=== PATIENT | female | born 1935 | race African-American/Black ===

== ENCOUNTER 2018-12-10 18:26 | Emergency (ER) | payer MEDICARE ==
[~2018-12-10] VITALS: Ht 165.1 cm; Wt 77.1 kg
[~2018-12-10 18:26] MED LIST: ASPI-1718 PO; LOVA20TA8 PO; OMEP-113 PO; VIC PO
[2018-12-10 18:31] VITALS: BP 149/82
[2018-12-10] MEDS ORDERED: NACL 0.9% 500 ML IV SCH (18:41)
--- NOTE | 2018-12-10 18:45 | NUR ---
82f bib self with c/o intermittent hypertension x today. During triage, in=667/92. Patient denies any cp or sob. Pt is aaox4 to person, place, time, and situation. RR are even and unlabored. Abd is soft and non tender. 3+ edema to bl lower legs. NAD. Will continue to monitor.
--- NOTE | 2018-12-10 19:10 | NUR ---
Pt report given to Fouzia VAUGHAN. Transfer of care at this time.
--- NOTE | 2018-12-10 19:54 | NUR ---
Dr. Friedman evaluating patient at bedside.
[2018-12-10] MEDS ORDERED: ENALAPRILAT 2.5 MG/2 ML VIAL IVP ONE (20:40)
[2018-12-10 20:49] LABS: BASOPHILS # (AUTO) 0.1 K/uL (0.00-0.22); BASOPHILS % (AUTO) 1.2 % (0.0-2.0); EOSINOPHILS # (AUTO) 0.1 K/uL (0-0.4); EOSINOPHILS % (AUTO) 2.6 % (0.0-4.0); HEMATOCRIT 40.6 % (36-48); HEMOGLOBIN 13.5 g/dL (12.0-16.0); LYMPHOCYTES # (AUTO) 1.8 K/uL (2.5-16.5); LYMPHOCYTES % (AUTO) 30.4 % (20.5-51.1); MEAN CORPUSCULAR HEMOGLOBIN 30 pg (27-31); MEAN CORPUSCULAR HGB CONC 33 g/dL (33-37); MEAN CORPUSCULAR VOLUME 89.1 fL (80-94); MONOCYTES # (AUTO) 0.3 K/uL (0.8-1.0); MONOCYTES % (AUTO) 5.1 % (1.7-9.3); NEUTROPHILS # (AUTO) 3.6 K/uL (1.8-7.7); NEUTROPHILS % (AUTO) 60.7 % (42.2-75.2); PLATELET COUNT (AUTO) 310 K/uL (140-450); RED BLOOD CELL COUNT(AUTO) 4.56 MIL/uL (4.20-5.40); RED CELL DISTRIBUTION WIDTH 13.3 % (11.6-13.7); WHITE BLOOD COUNT (AUTO) 5.9 K/uL (4.8-10.8)
[2018-12-10 21:06] LABS: ALBUMIN 4.3 g/dL (3.4-5.0); ANION GAP 10.7 (8-16); ASPARTATE AMINOTRANSFERASE 17 U/L (15-37); CARBON DIOXIDE 28.6 mmol/L (21-32); CHLORIDE 105 mmol/L (98-107); CREATININE 1.1 mg/dL (0.6-1.3); GLUCOSE 86 mg/dL (74-106); POTASSIUM 4.3 mmol/L (3.5-5.1); SODIUM SERUM 140 mmol/L (136-145); TOTAL BILIRUBIN 0.5 mg/dL (0.0-1.0); UREA NITROGEN, BLOOD 17 mg/dL (7-18)
[2018-12-10 22:31] VITALS: BP 156/72
--- NOTE | 2018-12-10 22:31 | NUR ---
Patient discharged with v/s stable. Written and verbal after care instructions given and explained. Patient verbalized understanding. Ambulatory with steady gait. All questions addressed prior to discharge. Advised to follow up with PMD.
== END 2018-12-10 22:31 | disposition home or self-care (01) ==
LOC: MED 18:26
DX: I10 Essential (primary) hypertension (principal); J44.9 Chronic obstructive pulmonary disease, unspecified; I71.9 Aortic aneurysm of unspecified site, without rupture; Z88.8 Allergy status to other drugs, medicaments and biological substances; Z79.82 Long term (current) use of aspirin; Z79.899 Other long term (current) drug therapy; Z79.1 Long term (current) use of non-steroidal anti-inflammatories (NSAID); Z98.890 Other specified postprocedural states
CPT/HCPCS: 36415; 71045; 80053; 81002; 83880; 84484; 85025; 93005; 96374; 99284; J3490; Q0092

== ENCOUNTER 2021-12-28 15:52 | Emergency (ER) | payer MEDICARE ==
[~2021-12-28] VITALS: Ht 165.1 cm; Wt 62.1 kg
[~2021-12-28 15:52] MED LIST changes: -ASPI-1718 PO; +ASPI-1822 PO; -OMEP-113 PO; +OMEP-283 PO
[2021-12-28 15:59] VITALS: BP 140/73
[2021-12-28] MEDS ORDERED: MORPHINE SULFATE 4 MG/ML SYR IM ONE (16:10)
[2021-12-28] MEDS ORDERED: ONDANSETRON 4 MG ODT PO ONE (16:10)
[2021-12-28] MEDS ORDERED: KETOROLAC 30 MG/ML VIAL IM ONE (17:15)
[2021-12-28] MEDS ORDERED: ACETAMINOPHEN 325 MG TAB PO ONE (17:15)
[2021-12-28] MEDS ORDERED: LID5T TP (18:17)
[2021-12-28] MEDS ORDERED: GABA300C PO (18:17)
[2021-12-28 18:44] VITALS: BP 155/66
== END 2021-12-28 18:44 | disposition home or self-care (01) ==
LOC: MED 15:52
DX: M54.41 Lumbago with sciatica, right side (principal); J44.9 Chronic obstructive pulmonary disease, unspecified; I10 Essential (primary) hypertension; Z79.899 Other long term (current) drug therapy; Z79.82 Long term (current) use of aspirin; Z98.890 Other specified postprocedural states
CPT/HCPCS: 72131; 96372; 99284; J1885; J2270; Q0162

== ENCOUNTER 2022-03-16 17:39 | Emergency (ER) | payer MEDICARE ==
[~2022-03-16] VITALS: Ht 165.1 cm; Wt 67.8 kg
[2022-03-16 17:39] VITALS: BP 130/74
[~2022-03-16 17:39] MED LIST changes: +GABA300C PO; +LID5T TP
--- NOTE | 2022-03-16 17:56 | NUR ---
LAB AT BEDSIDE
[2022-03-16 18:07] LABS: BASOPHILS # (AUTO) 0.2 K/uL (0.00-0.22); BASOPHILS % (AUTO) 3.9 % (0.0-2.0); EOSINOPHILS # (AUTO) 0.2 K/uL (0-0.4); EOSINOPHILS % (AUTO) 4.6 % (0.0-4.0); HEMATOCRIT 38.1 % (36-48); HEMOGLOBIN 12.6 g/dL (12.0-16.0); LYMPHOCYTES # (AUTO) 1.2 K/uL (2.5-16.5); LYMPHOCYTES % (AUTO) 23.1 % (20.5-51.1); MEAN CORPUSCULAR HEMOGLOBIN 29 pg (27-31); MEAN CORPUSCULAR HGB CONC 33 g/dL (33-37); MEAN CORPUSCULAR VOLUME 88.1 fL (80-94); MONOCYTES # (AUTO) 0.3 K/uL (0.8-1.0); NEUTROPHILS # (AUTO) 3.4 K/uL (1.8-7.7); NEUTROPHILS % (AUTO) 63.4 % (42.2-75.2); PLATELET COUNT (AUTO) 329 K/uL (140-450); RED BLOOD CELL COUNT(AUTO) 4.32 MIL/uL (4.20-5.40); RED CELL DISTRIBUTION WIDTH 13.5 % (11.6-13.7); WHITE BLOOD COUNT (AUTO) 5.4 K/uL (4.8-10.8)
[2022-03-16 18:21] LABS: ALBUMIN 3.9 g/dL (3.4-5.0); ANION GAP 11.7 (8-16); ASPARTATE AMINOTRANSFERASE 16 U/L (15-37); CARBON DIOXIDE 30.3 mmol/L (21-32); CHLORIDE 102 mmol/L (98-107); CREATININE 1.1 mg/dL (0.6-1.3); GLUCOSE 92 mg/dL (74-106); SODIUM SERUM 140 mmol/L (136-145); TOTAL BILIRUBIN 0.5 mg/dL (0.0-1.0); UREA NITROGEN, BLOOD 18 mg/dL (7-18)
--- NOTE | 2022-03-16 19:19 | NUR ---
REPORT GIVEN TO ALEXUS SOLIMAN . TRANSFER OF CARE
--- NOTE | 2022-03-16 19:45 | NUR ---
PT MADE AWARE THAT LAB RESULTS ARE STILL PENDING
--- NOTE | 2022-03-16 19:51 | NUR ---
Provided pt with juice upon request
[2022-03-16] MEDS ORDERED: IBUP-2213 PO (21:11)
[2022-03-16 21:41] VITALS: BP 138/76
== END 2022-03-16 21:20 | disposition home or self-care (01) ==
LOC: MED 17:39
DX: R07.9 Chest pain, unspecified (principal); J44.9 Chronic obstructive pulmonary disease, unspecified; Z98.890 Other specified postprocedural states; Z79.1 Long term (current) use of non-steroidal anti-inflammatories (NSAID); Z79.899 Other long term (current) drug therapy; Z79.82 Long term (current) use of aspirin; Z79.891 Long term (current) use of opiate analgesic; Z88.8 Allergy status to other drugs, medicaments and biological substances
CPT/HCPCS: 36415; 71045; 80053; 83880; 84484; 85025; 93005; 99285; Q0092

== ENCOUNTER 2022-07-11 14:15 | Emergency (ER) | payer MEDICARE ==
[~2022-07-11] VITALS: Ht 162.6 cm; Wt 70.3 kg
[~2022-07-11 14:15] MED LIST changes: +IBUP-2213 PO
[2022-07-11 14:28] VITALS: BP 134/65
--- NOTE | 2022-07-11 14:35 | NUR ---
PT SENT FROM C/C ABNORMAL EKG. PT REPORTS HAVING X1 EPISODE OF PALPITATION 3 DAYS AGO. PT DENIES CP OR SOB. PENDING ER MD GARCÍA.
[2022-07-11 15:41] LABS: BASOPHILS % (AUTO) 1.1 % (0.0-2.0); EOSINOPHILS # (AUTO) 0.2 K/uL (0-0.4); EOSINOPHILS % (AUTO) 3.6 % (0.0-4.0); HEMATOCRIT 34.6 % (36-48); HEMOGLOBIN 11.5 g/dL (12.0-16.0); LYMPHOCYTES # (AUTO) 1.3 K/uL (2.5-16.5); LYMPHOCYTES % (AUTO) 28.1 % (20.5-51.1); MEAN CORPUSCULAR HEMOGLOBIN 30 pg (27-31); MEAN CORPUSCULAR HGB CONC 33 g/dL (33-37); MEAN CORPUSCULAR VOLUME 89.7 fL (80-94); MONOCYTES # (AUTO) 0.2 K/uL (0.8-1.0); MONOCYTES % (AUTO) 4.8 % (1.7-9.3); NEUTROPHILS # (AUTO) 2.9 K/uL (1.8-7.7); NEUTROPHILS % (AUTO) 62.4 % (42.2-75.2); PLATELET COUNT (AUTO) 265 K/uL (140-450); RED BLOOD CELL COUNT(AUTO) 3.85 MIL/uL (4.20-5.40); RED CELL DISTRIBUTION WIDTH 13.3 % (11.6-13.7); WHITE BLOOD COUNT (AUTO) 4.6 K/uL (4.8-10.8)
[2022-07-11 15:59] LABS: ALBUMIN 3.3 g/dL (3.4-5.0); ANION GAP 11.3 (8-16); ASPARTATE AMINOTRANSFERASE 13 U/L (15-37); CARBON DIOXIDE 25.8 mmol/L (21-32); CHLORIDE 107 mmol/L (98-107); CREATININE 0.9 mg/dL (0.6-1.3); GLUCOSE 98 mg/dL (74-106); POTASSIUM 4.1 mmol/L (3.5-5.1); SODIUM SERUM 140 mmol/L (136-145); TOTAL BILIRUBIN 0.4 mg/dL (0.0-1.0); UREA NITROGEN, BLOOD 16 mg/dL (7-18)
[2022-07-11 16:45] VITALS: BP 145/70
--- NOTE | 2022-07-11 17:02 | NUR ---
Patient does not wish to proceed with medical care recommended by WILLIAM. Patient given information related to possible complications, up to and including , which could occur as a result of leaving hospital at this time. Patient verbalizes understanding of risks involved leaving against medical advice. Patient has signed AMA form.
== END 2022-07-11 17:02 | disposition left against medical advice (07) ==
LOC: MED 14:15
DX: R00.2 Palpitations (principal); I49.1 Atrial premature depolarization; J44.9 Chronic obstructive pulmonary disease, unspecified; I10 Essential (primary) hypertension; Z79.899 Other long term (current) drug therapy; Z79.82 Long term (current) use of aspirin; Z88.8 Allergy status to other drugs, medicaments and biological substances
CPT/HCPCS: 36415; 71045; 80053; 83880; 84484; 85025; 93005; 99285

== ENCOUNTER 2023-01-15 23:05 | Emergency (ER) | payer MEDICARE ==
[~2023-01-15] VITALS: Ht 162.6 cm; Wt 65.8 kg
--- NOTE | 2023-01-15 23:12 | NUR ---
PT [facility] ER BED 12
[2023-01-15 23:17] VITALS: BP 154/53
--- NOTE | 2023-01-15 23:25 | NUR ---
Patient resting in bed, A/Ox4, chest rise and fall symmetrical, no c/o pain or s/s of distress, patient on monitor.
[2023-01-16 00:27] LABS: BASOPHILS % (AUTO) 0.7 % (0.0-2.0); EOSINOPHILS # (AUTO) 0.1 K/uL (0-0.4); EOSINOPHILS % (AUTO) 0.9 % (0.0-4.0); HEMATOCRIT 37.7 % (36-48); HEMOGLOBIN 12.5 g/dL (12.0-16.0); LYMPHOCYTES # (AUTO) 1.9 K/uL (2.5-16.5); LYMPHOCYTES % (AUTO) 26.3 % (20.5-51.1); MEAN CORPUSCULAR HEMOGLOBIN 29 pg (27-31); MEAN CORPUSCULAR HGB CONC 33 g/dL (33-37); MEAN CORPUSCULAR VOLUME 88.2 fL (80-94); MONOCYTES # (AUTO) 0.6 K/uL (0.8-1.0); MONOCYTES % (AUTO) 8.8 % (1.7-9.3); NEUTROPHILS # (AUTO) 4.5 K/uL (1.8-7.7); NEUTROPHILS % (AUTO) 63.3 % (42.2-75.2); PLATELET COUNT (AUTO) 306 K/uL (140-450); RED BLOOD CELL COUNT(AUTO) 4.28 MIL/uL (4.20-5.40); RED CELL DISTRIBUTION WIDTH 13.3 % (11.6-13.7); WHITE BLOOD COUNT (AUTO) 7.1 K/uL (4.8-10.8)
[2023-01-16 01:07] LABS: ALBUMIN 4.3 g/dL (3.4-5.0); ANION GAP 6.2 (8-16); ASPARTATE AMINOTRANSFERASE 7 U/L (15-37); CARBON DIOXIDE 32.8 mmol/L (21-32); CHLORIDE 102 mmol/L (98-107); CREATININE 0.9 mg/dL (0.6-1.3); GLUCOSE 96 mg/dL (74-106); SODIUM SERUM 137 mmol/L (136-145); THYROID STIMULATING HORMONE 1.08 uIU/mL (0.34-3.74); TOTAL BILIRUBIN 0.6 mg/dL (0.0-1.0); UREA NITROGEN, BLOOD 26 mg/dL (7-18)
[2023-01-16 01:45] VITALS: BP 127/85
--- NOTE | 2023-01-16 01:55 | NUR ---
Patient resting in bed, A/Ox4, chest rise and fall symmetrical, no c/o pain or s/s of distress, patient on monitor.
== END 2023-01-16 02:21 | disposition home or self-care (01) ==
LOC: MED 23:05
DX: I10 Essential (primary) hypertension (principal); R00.2 Palpitations; J44.9 Chronic obstructive pulmonary disease, unspecified; Z88.8 Allergy status to other drugs, medicaments and biological substances; Z79.899 Other long term (current) drug therapy
CPT/HCPCS: 36415; 71045; 80053; 84443; 84484; 85025; 93005; 99285; Q0092

== ENCOUNTER 2023-04-15 21:50 | Inpatient (IN) | payer MEDICARE, OTHER ==
[~2023-04-15] VITALS: Ht 162.6 cm; Wt 64.9 kg
[2023-04-15 21:52] VITALS: BP 167/80; PULSE 103; RESP 23; TEMP 98.1; O2SAT 98
--- NOTE | 2023-04-15 21:57 | NUR ---
PT [facility]. TAKEN TO BED 11
--- NOTE | 2023-04-15 22:22 | NUR ---
X-Ray at bedside.
[2023-04-15 22:23] LABS: BASOPHILS % (AUTO) 0.3 % (0.0-2.0); HEMATOCRIT 38.5 % (36-48); HEMOGLOBIN 13.1 g/dL (12.0-16.0); LYMPHOCYTES # (AUTO) 0.2 K/uL (2.5-16.5); LYMPHOCYTES % (AUTO) 4.6 % (20.5-51.1); MEAN CORPUSCULAR HEMOGLOBIN 30 pg (27-31); MEAN CORPUSCULAR HGB CONC 34 g/dL (33-37); MONOCYTES % (AUTO) 0.3 % (1.7-9.3); NEUTROPHILS # (AUTO) 4.7 K/uL (1.8-7.7); NEUTROPHILS % (AUTO) 94.8 % (42.2-75.2); PLATELET COUNT (AUTO) 275 K/uL (140-450); RED BLOOD CELL COUNT(AUTO) 4.37 MIL/uL (4.20-5.40); RED CELL DISTRIBUTION WIDTH 14.3 % (11.6-13.7)
--- NOTE | 2023-04-15 22:28 | NUR ---
PT AMBULATED TO THE BATHROOM WITH ASSISTANCE. PT HAS PAIN TO BILATERAL KNEES AFTER RECEIVING BILATERAL CORTISONE SHOTS. NEERAJ TAPIA MADE AWARE
[2023-04-15 22:44] LABS: LIPASE 86 U/L (73-393)
[2023-04-15 22:46] LABS: ALBUMIN 3.9 g/dL (3.4-5.0); ANION GAP 16.4 (8-16); ASPARTATE AMINOTRANSFERASE 19 U/L (15-37); CARBON DIOXIDE 23.5 mmol/L (21-32); CHLORIDE 104 mmol/L (98-107); CREATININE 1.2 mg/dL (0.6-1.3); GLUCOSE 229 mg/dL (74-106); POTASSIUM 3.9 mmol/L (3.5-5.1); SODIUM SERUM 140 mmol/L (136-145); TOTAL BILIRUBIN 0.3 mg/dL (0.0-1.0); UREA NITROGEN, BLOOD 19 mg/dL (7-18)
[2023-04-15] MEDS ORDERED: ASPIRIN 325 MG TAB PO ONE (23:35)
[2023-04-15] MEDS ORDERED: MORPHINE SULFATE 2 MG/ML SYR IVP STA (23:35)
[2023-04-15] MEDS ORDERED: ACET-512 PO (23:54)
[2023-04-15] MEDS ORDERED: FURO-570 PO (23:54)
[2023-04-15] MEDS ORDERED: ALEN70TA85 PO (23:54)
--- NOTE | 2023-04-15 23:54 | NUR ---
MED RECONCILE COMPLETED
--- NOTE | 2023-04-16 00:09 | NUR ---
PT TO CT VIA JAQUEL[facility]
--- NOTE | 2023-04-16 00:34 | NUR ---
PT RETURN FROM CT
[2023-04-16] MEDS ORDERED: MAGNESIUM OXIDE 400 MG TAB PO PRN (02:00)
[2023-04-16] MEDS ORDERED: ACETAMINOPHEN 325 MG TAB PO PRN (02:00)
[2023-04-16] MEDS ORDERED: MORPHINE SULFATE 2 MG/ML SYR IVP PRN (02:00)
[2023-04-16] MEDS ORDERED: KCL 20 MEQ IN 100 mL PREMIX 200 ML IV PRN (02:00)
[2023-04-16] MEDS ORDERED: HYDROcodone/APAP 5/325 MG 1 TAB TAB PO PRN (02:00)
[2023-04-16] MEDS ORDERED: MAG SULF 2000 MG/WATER PREMIX 50 ML IV PRN (02:00)
[2023-04-16] MEDS ORDERED: POTASSIUM CHLORIDE 10 MEQ TABER PO PRN (02:00)
[2023-04-16] MEDS ORDERED: hydrALAZINE 20 MG/ML VIAL IVP PRN (02:05)
--- NOTE | 2023-04-16 04:13 | NUR ---
pt ambulated to the bathroom with assistance. pt tolerating well.
--- NOTE | 2023-04-16 05:51 | NUR ---
Note tomas in EDM - 04/16/23 at 0557 by [email or web address] 3100ml taken out of the nooann bag with that had blood, bloood cots, and was clear. NEERAJ TAPIA aware.
--- NOTE | 2023-04-16 07:23 | NUR ---
Pt report given to Indira FARMER. Transfer of care at this time.
--- NOTE | 2023-04-16 07:27 | NUR ---
REPORT RECEIVED FROM SID RN. ASSUMED CARE AT THIS TIME
[2023-04-16 08:00] VITALS: PULSE 101; PULSE 106; PULSE 87; RESP 20
--- NOTE | 2023-04-16 08:00 | NUR ---
admitted the patient from emergency room nurse in rom 108A . with admitting diagnosis of tachycardia aox4 will have cardiology consult with Md her
--- NOTE | 2023-04-16 08:17 | NUR ---
Patient will be admitted to care of MD DAVIS. Admited to TELE. Will go to [id number]. Belongings list completed. Report to MARKO VAUGHAN.
--- NOTE | 2023-04-16 08:32 | NUR ---
troponin level 199 . md made aware .cardiac consult is on board . cardiac md made aware .
--- NOTE | 2023-04-16 08:51 | NUR ---
The patient's care was reviewed and supervised by [place] 05 LEELEE, RN.
[2023-04-16] MEDS: ASPIRIN 81 MG TAB.CHEW PO SCH (08:55)
[2023-04-16] MEDS: ATORVASTATIN 20 MG TAB PO SCH (08:55)
--- NOTE | 2023-04-16 09:00 | NUR ---
PATIENT HAS BEEN SCREENED AND CATEGORIZED LOW NUTRITION RISK. PATIENT WILL BE SEEN WITHIN 7 DAYS OF ADMISSION. 04/23/[address]
[2023-04-16 12:00] VITALS: BP 138/46; PULSE 103; PULSE 126; RESP 20; TEMP 98.9; O2SAT 96
--- NOTE | 2023-04-16 14:19 | NUR ---
norco pain re assessment 2/10 pain scale for head pain . very effective
--- NOTE | 2023-04-16 14:51 | NUR ---
called the kitchen requested for chicken pok beef ,mashed potatoes , cabbage but available . ok no vegestable
--- NOTE | 2023-04-16 14:57 | NUR ---
called the kitchen pt requesting chicken pork beef mashed potaoe , cabbage on cardiac diet . but no cabbage available at the kitchen . py stated ok not to have vegestable . kitchen said they will just send vegestable . the pt has option to take it or not
[2023-04-16 16:00] VITALS: BP 120/57; PULSE 65; PULSE 69; RESP 20; TEMP 98.8; O2SAT 96
--- NOTE | 2023-04-16 17:43 | NUR ---
md her had made some rounds . talk to the patient and family made orders . noted and carried out.
--- NOTE | 2023-04-16 18:23 | NUR ---
will endorse to hourly shift manager rn for continuity of care for DVT prophylaxis , cardiac consult with Md Carnes
[2023-04-16] MEDS ORDERED: ALUMINUM HYD/MAG/SIMETHICONE 30 ML UDC PO PRN (19:30)
--- NOTE | 2023-04-16 19:30 | NUR ---
RECEIVED PATIENT FROM AM NURSE FOR CONTINUITY OF CARE. PT IS STABLE
[2023-04-16 19:55] VITALS: PULSE 66
[2023-04-16 20:00] VITALS: BP 125/51; PULSE 82; RESP 20; TEMP 97.9; O2SAT 95
[2023-04-16] MEDS: METOPROLOL 25 MG TAB PO SCH (20:33)
[2023-04-16 23:53] VITALS: PULSE 47
[2023-04-17] VITALS: BP 124/48; PULSE 64; RESP 19; TEMP 97.4; O2SAT 95
--- NOTE | 2023-04-17 | NUR ---
PATIENT ASLLEP. ALL SAFETY MEASURES IN PLACE, CALL LIGHT WITHIN EASY REACH
[2023-04-17 04:00] VITALS: BP 121/52; PULSE 75; RESP 19; TEMP 97.8; O2SAT 96
[2023-04-17 04:01] VITALS: PULSE 41
--- NOTE | 2023-04-17 07:03 | NUR ---
receive the patient from the maintenance mechanic 2nd shift trace huynh with admitting diagnosis of sinus bradycardia . no complain of chest pain . no sign and symptoms of respiratory distress , will continue to monitor
[2023-04-17 07:12] LABS: BASOPHILS % (AUTO) 0.4 % (0.0-2.0); HEMATOCRIT 33.5 % (36-48); HEMOGLOBIN 11.6 g/dL (12.0-16.0); LYMPHOCYTES # (AUTO) 0.6 K/uL (2.5-16.5); LYMPHOCYTES % (AUTO) 5.1 % (20.5-51.1); MEAN CORPUSCULAR HEMOGLOBIN 30 pg (27-31); MEAN CORPUSCULAR HGB CONC 35 g/dL (33-37); MEAN CORPUSCULAR VOLUME 87.6 fL (80-94); MONOCYTES # (AUTO) 0.4 K/uL (0.8-1.0); MONOCYTES % (AUTO) 3.4 % (1.7-9.3); NEUTROPHILS # (AUTO) 10.4 K/uL (1.8-7.7); NEUTROPHILS % (AUTO) 91.1 % (42.2-75.2); PLATELET COUNT (AUTO) 254 K/uL (140-450); RED BLOOD CELL COUNT(AUTO) 3.83 MIL/uL (4.20-5.40); RED CELL DISTRIBUTION WIDTH 14.2 % (11.6-13.7); WHITE BLOOD COUNT (AUTO) 11.5 K/uL (4.8-10.8)
[2023-04-17 07:21] VITALS: PULSE 68; RESP 19
--- NOTE | 2023-04-17 07:23 | NUR ---
ENDORSED PATIENT TO AM NURSE FOR CONTINUITY OF CARE. PT IS STABLE
[2023-04-17 07:56] LABS: ALBUMIN 3.2 g/dL (3.4-5.0); ANION GAP 13.7 (8-16); ASPARTATE AMINOTRANSFERASE 14 U/L (15-37); CARBON DIOXIDE 26.2 mmol/L (21-32); CHLORIDE 105 mmol/L (98-107); CREATININE 0.8 mg/dL (0.6-1.3); GLUCOSE 125 mg/dL (74-106); POTASSIUM 3.9 mmol/L (3.5-5.1); SODIUM SERUM 141 mmol/L (136-145); TOTAL BILIRUBIN 0.5 mg/dL (0.0-1.0); UREA NITROGEN, BLOOD 25 mg/dL (7-18)
[2023-04-17 08:00] VITALS: PULSE 46
[2023-04-17] MEDS: ATORVASTATIN 20 MG TAB PO SCH (08:34)
[2023-04-17] MEDS: ASPIRIN 81 MG TAB.CHEW PO SCH (08:34)
[2023-04-17] MEDS: METOPROLOL 25 MG TAB PO SCH (08:35)
[2023-04-17] MEDS ORDERED: METO25TA PO (10:57)
[2023-04-17 11:12] VITALS: BP 114/62; PULSE 96; RESP 16; TEMP 97.7
--- NOTE | 2023-04-17 12:15 | NUR ---
made discharge patient teaching . discontinue iv port , identification band , heart monitor . 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 will continue to have cardiac diet . see primary health provider in one week
== END 2023-04-17 12:10 | disposition home or self-care (01) | DRG 281 ==
LOC: MED 21:50 → OBSVTOIN 04-16 02:02 → MTU 04-16 02:02
PROVIDERS: ADMIT Internal Medicine; ATTEND Internal Medicine
DX: I16.0 Hypertensive urgency (principal); I21.A1 Myocardial infarction type 2; C34.90 Malignant neoplasm of unspecified part of unspecified bronchus or lung; N13.30 Unspecified hydronephrosis; I50.30 Unspecified diastolic (congestive) heart failure; I11.0 Hypertensive heart disease with heart failure; Z20.822 Contact with and (suspected) exposure to COVID-19; J43.9 Emphysema, unspecified; Z87.891 Personal history of nicotine dependence; Z88.8 Allergy status to other drugs, medicaments and biological substances; Z79.1 Long term (current) use of non-steroidal anti-inflammatories (NSAID); Z79.82 Long term (current) use of aspirin; Z79.899 Other long term (current) drug therapy
CPT/HCPCS: 36415; 71045; 71275; 80053; 83690; 83735; 83880; 84484; 85025; 87081; 93005; 93971; 96374; 99291; J1644; J2270; Q0092; Q9967

== ENCOUNTER 2023-08-24 06:25 | Emergency (ER) | payer MEDICARE, OTHER ==
[~2023-08-24] VITALS: Ht 162.6 cm; Wt 63.0 kg
[~2023-08-24 06:25] MED LIST changes: +ALEN70TA85 PO; -LID5T TP; +METO25TA PO
[2023-08-24 06:31] VITALS: BP 129/62; PULSE 60; RESP 16; TEMP 97.8; O2SAT 99
[2023-08-24 07:04] VITALS: BP 128/62; PULSE 60; RESP 16; TEMP 97.8; O2SAT 99
== END 2023-08-24 07:15 | disposition left against medical advice (07) ==
LOC: MED 06:25
DX: R07.2 Precordial pain (principal); R22.41 Localized swelling, mass and lump, right lower limb; J44.9 Chronic obstructive pulmonary disease, unspecified; I10 Essential (primary) hypertension; Z79.899 Other long term (current) drug therapy; Z79.1 Long term (current) use of non-steroidal anti-inflammatories (NSAID); Z79.82 Long term (current) use of aspirin
CPT/HCPCS: 93005; 99283